=== PATIENT | male | born 1955 | race Caucasian/White ===

== ENCOUNTER → 2017-05-21 | Day surgery (SDC) | payer OTHER ==
[~2017-05-21] MED LIST: D5 LR 1000 ML 1,000 ML IV ONE; DIPRIVAN VIAL 20 ML ONE
[2017-05-21 10:23] VITALS: BP 153/85
== END | disposition home or self-care (01) ==
LOC: SURG1 09:36
PROVIDERS: ATTEND Student in an Organized Health Care Education/Training Program
PROC: 0DJD8ZZ Inspection of Lower Intestinal Tract, Via Natural or Artificial Opening Endoscopic (ICD-10-PCS; principal; 2017-05-21 10:45)
DX: Z12.11 Encounter for screening for malignant neoplasm of colon (principal); K57.30 Diverticulosis of large intestine without perforation or abscess without bleeding; K64.0 First degree hemorrhoids
CPT/HCPCS: A4217; J3490; J7120